=== PATIENT | male | born 2000 | race Caucasian/White ===

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

== ENCOUNTER 2019-05-05 22:16 | Emergency (ER) | payer BC ==
--- NOTE | 2019-05-05 22:34 | Emergency Department Record ---
History of Present Illness - General Stated Complaint: CHEST PAIN Time Seen by Provider: 05/05/19 22:17 Source: Patient Mode of Arrival: Ambulatory Limitations: No limitations - History of Present Illness Initial Comments: 18 yo male presents to ED for evaluation of chest pain symptoms that began approximately 1 hour ago while laying down to go to sleep. Patient reports pain "over my heart", rates pain severity at 1/10. Patient denies previous heart problems other than a "low heart rate", denies previous heart or lung problems otherwise. Patient denies any pain with deep inspiration, calf pain, swelling, fevers, chills, or cough symptoms. Patient denies health problems other than seizures. MD Complaint: Chest pain Onset/Timin -: Hour(s) Onset: During rest Pain Location: Substernal Pain Radiation: None Severity: Mild Severity scale (1-10): 1 Consistency: Constant Improves With: Nothing Worsens With: Nothing Treatments Prior to Arrival: None - Related Data Allergies Allergy/AdvReac Type Severity Reaction Status Date / Time amoxicillin Allergy HIVES Verified 05/05/19 22:37 Review of Systems Constitutional: Denies: Chills, Fever, Malaise, Night sweats Eyes: Denies: Eye discharge, Eye pain ENT: Denies: Congestion, Ear pain, Epistaxis Respiratory: Denies: Cough, Dyspnea Cardiovascular: Reports: Chest pain. Denies: Dyspnea on exertion, Edema, Palpitations Endocrine: Denies: Fatigue, Heat or cold intolerance Gastrointestinal: Denies: Abdominal pain, Nausea, Vomiting Genitourinary: Denies: Incontinence, Retention Musculoskeletal: Denies: Arthralgia, Back pain, Gout, Joint swelling Skin: Denies: Bruising, Change in color Neurological: Denies: Abnormal gait, Confusion, Headache, Tingling, Tremors Psychiatric: Denies: Anxiety Hematological/Lymphatic: Denies: Anemia, Blood Clots Past Medical History - SOCIAL HISTORY Smoking Status: Never smoker - RESPIRATORY Hx Respiratory Disorders: No - CARDIOVASCULAR Hx Cardio Disorders: Yes Comment:: bradycardia - NEURO Hx Neuro Disorders: Yes Hx Seizures: Yes (last one 02/2015) - GI Hx GI Disorders: No - Hx Genitourinary Disorders: No - ENDOCRINE Hx Endocrine Disorders: No - MUSCULOSKELETAL Hx Musculoskeletal Disorders: No - PSYCH Hx Psych Problems: No - HEMATOLOGY/ONCOLOGY Hx Hematology/Oncology Disorders: No Family Medical History Hx Cancer: Grandparents Hx Heart Disease: Grandparents Physical Exam - General General Appearance: Alert, Oriented x3, Cooperative, No acute distress Limitations: No limitations - Head Head exam: Atraumatic, Normocephalic, Normal inspection Head exam detail: negative: Abrasion, Contusion, Carrasquillo's sign, General tenderness, Hematoma, Laceration - Eye Eye exam: Normal appearance. negative: Conjunctival injection, Periorbital swelling, Periorbital tenderness, Scleral icterus - ENT Ear exam: negative: Auricular hematoma, Auricular trauma Nasal Exam: negative: Active bleeding, Discharge, Dried blood, Foreign body Mouth exam: negative: Drooling, Laceration, Muffled voice, Tongue elevation - Neck Neck exam: Normal inspection. negative: Meningismus, Tenderness - Respiratory Respiratory exam: Normal lung sounds bilaterally. negative: Respiratory distress, Rhonchi, Stridor, Wheezes - Cardiovascular Cardiovascular Exam: Regular rate, Normal rhythm, Normal heart sounds - GI/Abdominal GI/Abdominal exam: Soft. negative: Distended, Rebound, Rigid, Tenderness - Rectal Rectal exam: Deferred - exam: Deferred - Extremities Extremities exam: Normal inspection. negative: Pedal edema, Tenderness - Back Back exam: Denies: CVA tenderness (R), CVA tenderness (L) - Neurological Neurological exam: Alert, Normal gait, Oriented X3 - Psychiatric Psychiatric exam: Normal affect, Normal mood - Skin Skin exam: Normal color. negative: Abrasion Type of lesion: negative: abrasion Course Vital Signs 05/05/19 22:23 Temperature 97.7 F Pulse Rate [ 54 L Pulse Ox Probe] Respiratory 20 Rate Blood Pressure 133/82 [Left Arm] Pulse Ox 99 - Reevaluation(s) Reevaluation #1: 05/05/19 22:33 EKG: NSR 60 Normal axis, normal intervals J-point elevation, no evidence for pericarditis/acute cardiac abnormality. Reevaluation #2: 05/05/19 22:55 CXR: No acute process PERC clinical decision rule was applied, and the patient does not have any of the following: -Age > 50 years -Pulse > 100 -Oxygen Saturation < 94% -History of Hemoptysis -Unilateral leg swelling -History or PE/DVT -Recent surgery or Trauma -Oral contraceptive/Hormone use Patient was updated on all results, no evidence for PE as patient is PERC negative EKG demonstrates no acute changes Symptoms are likely musculo-skeletal in etiology. Patient appears stable for discharge at this time with symptomatic care as directed. Disposition Disposition: Discharge Clinical Impression: Atypical chest pain Disposition: Home, Self-Care Condition: (2) Stable Instructions: Chest Pain (ED) Additional Instructions: Return to ED if your symptoms worsen or if you have any concerns. Ibuprofen as directed for pain symptoms. Follow-up with your family doctor in 3-5 days as directed. Forms: Patient Portal Access Time of Disposition: 22:55 Quality - Quality Measures Quality Measures: N/A - Blood Pressure Screening Does Patient Have Any of the Following: No Blood Pressure Classification: Pre-Hypertensive BP Reading Systolic Measurement: 133 Diastolic Measurement: 82 Screening for High Blood Pressure: < Pre-Hypertensive BP, F/U Documented > [G8950] Pre-Hypertensive Follow-up Interventions: Referral to alternative/primary care provider.
--- NOTE | 2019-05-07 05:32 | RADIOLOGY REPORT ---
EXAM: CHEST 2 VIEWS HISTORY: DULL CENTRAL CHEST PAIN. TECHNIQUE: Two views of the chest. COMPARISON: None. FINDINGS: The heart is borderline prominent in size but the mediastinum appears normal. The lungs show no evidence of pneumonia, effusion, edema, or pneumothorax. No suspicious pulmonary nodule. Skeletal structures appear unremarkable. IMPRESSION: NO SIGN OF ANY SPECIFIC OR ACUTE CHEST PATHOLOGY. JOB NUMBER: [id number] [facility]
== END 2019-05-05 22:58 | disposition home or self-care (01) ==
LOC: ER 22:16
DX: R07.89 Other chest pain (principal)
CPT/HCPCS: 71046; 93005; 93010; 99284

== ENCOUNTER 2019-08-24 00:37 | Emergency (ER) | payer BC ==
[2019-08-24] MEDS ORDERED: 0.9 % SODIUM CHLORIDE 1,000 ML BAG IV ONE (00:41)
--- NOTE | 2019-08-24 00:47 | Emergency Department Record ---
History of Present Illness - General Chief Complaint: Seizures Stated Complaint: SEIZURE Time Seen by Provider: 08/24/19 00:41 Source: Patient, Family Mode of Arrival: Wheelchair - History of Present Illness Initial Comments: Mom reports that her son had a grand mal seizure tonight. He has a history of epilepsy since age 3. He ran out of his seizure medication, so he has not had any lamictal medication for the past week. He claims his PCP hasn't sent in his prescription refill. Mom states he has been on 300 mg lamictal daily for over 3 years without dose alterations. She estimates it is his 5th or 6th day with no lamictal since he ran out. The patient denies headache, vision changes, pain anywhere, or other symptoms. Our staff removed him from his vehicle into a wheelchair during which he appeared glassy eyed, and sluggish. By the time he arrived in the E[facility]Dept cart he was answering appropriately and awake, and was able to get onto the cart by himself. Mom reports that his last seizure was about 9 months ago, and the last prior to that was a few years earlier. She also states he did not injure himself when he began seizing tonight. Mom states he has history of a slow heart rate. MD Complaint: Seizure - Related Data Previous Rx's Medication Instructions Recorded Sulfamethoxazole/Trimethoprim 1 each PO BID #19 tablet 08/24/19 [Bactrim Ds Tablet] Allergies Allergy/AdvReac Type Severity Reaction Status Date / Time amoxicillin Allergy HIVES Verified 08/24/19 00:51 Review of Systems Reviewed: No additional complaints except as noted below Constitutional: Reports: As per HPI. Denies: Chills, Fever, Malaise, Night sweats, Weakness, Weight change Eyes: Reports: As per HPI. Denies: Eye discharge, Eye pain, Photophobia, Vision change ENT: Reports: As per HPI. Denies: Congestion, Dental pain, Ear pain, Epistaxis, Hearing loss, Throat pain Respiratory: Reports: As per HPI. Denies: Cough, Dyspnea, Hemoptysis, Stridor, Wheezes Cardiovascular: Reports: As per HPI. Denies: Arrhythmia, Chest pain, Dyspnea on exertion, Edema, Murmurs, Orthopnea, Palpitations, Paroxysmal nocturnal dyspnea, Rheumatic Fever, Syncope Endocrine: Reports: As per HPI. Denies: Fatigue, Heat or cold intolerance, Polydipsia, Polyuria Gastrointestinal: Reports: As per HPI. Denies: Abdominal pain, Constipation, Diarrhea, Hematemesis, Hematochezia, Melena, Nausea, Vomiting Genitourinary: Reports: As per HPI. Denies: Dysuria, Frequency, Hematuria, Incontinence, Retention, Testicular pain, Testicular mass, Urgency Musculoskeletal: Reports: As per HPI. Denies: Arthralgia, Back pain, Gout, Joint swelling, Myalgia, Neck pain Skin: Reports: As per HPI. Denies: Bruising, Change in color, Change in hair/nails, Lesions, Pruritus, Rash Neurological: Reports: As per HPI. Denies: Abnormal gait, Confusion, Headache, Numbness, Paresthesias, Seizure, Tingling, Tremors, Vertigo, Weakness Psychiatric: Reports: As per HPI. Denies: Anxiety, Auditory hallucinations, Depression, Homicidal thoughts, Suicidal thoughts, Visual hallucinations Hematological/Lymphatic: Reports: As per HPI. Denies: Anemia, Blood Clots, Easy bleeding, Easy bruising, Swollen glands Past Medical History - SOCIAL HISTORY Smoking Status: Never smoker - RESPIRATORY Hx Respiratory Disorders: No - CARDIOVASCULAR Hx Cardio Disorders: Yes Comment:: bradycardia - NEURO Hx Neuro Disorders: Yes Hx Seizures: Yes (last one 02/2015) - GI Hx GI Disorders: No - Hx Genitourinary Disorders: No - ENDOCRINE Hx Endocrine Disorders: No - MUSCULOSKELETAL Hx Musculoskeletal Disorders: No - PSYCH Hx Psych Problems: No - HEMATOLOGY/ONCOLOGY Hx Hematology/Oncology Disorders: No Family Medical History Hx Cancer: Grandparents Hx Heart Disease: Grandparents Physical Exam - General General Appearance: Alert, Oriented x3, Cooperative, No acute distress, Other (does not recall events during seizure which mom witnessed) - Head Head exam: Normal inspection - Eye Eye exam: Normal appearance, PERRL, EOMI. negative: Conjunctival injection, Nystagmus Pupils: Normal accommodation - ENT ENT exam: Normal exam, Mucous membranes moist, Normal external ear exam, Normal orophraynx, TM's normal bilaterally Ear exam: Normal external inspection. negative: External canal tenderness Nasal Exam: Normal inspection. negative: Discharge, Sinus tenderness Mouth exam: Normal external inspection, Tongue normal Teeth exam: Normal inspection. negative: Dental caries Throat exam: Normal inspection. negative: Tonsillar erythema, Tonsillar exudate - Neck Neck exam: Normal inspection, Full ROM. negative: Lymphadenopathy, Meningismus, Tenderness - Respiratory Respiratory exam: Normal lung sounds bilaterally. negative: Respiratory distress - Cardiovascular Cardiovascular Exam: Regular rate, Normal rhythm, Normal heart sounds, Bradycardia - GI/Abdominal GI/Abdominal exam: Soft, Normal bowel sounds, Other (spot of urinary inco ntinence noted on blue jeans left of zipper). negative: Tenderness - Rectal Rectal exam: Deferred - exam: Deferred - Extremities Extremities exam: Normal inspection, Full ROM, Normal capillary refill. negative: Tenderness - Back Back exam: Reports: Normal inspection, Full ROM. Denies: Muscle spasm, Rash noted, Tenderness, Vertebral tenderness - Neurological Neurological exam: Alert, CN II-XII intact, Normal gait, Oriented X3, Reflexes normal. negative: Altered, Motor sensory deficit - Psychiatric Psychiatric exam: Normal affect, Normal mood - Skin Skin exam: Dry, Intact, Normal color, Warm. negative: Cyanosis, Diaphoretic, Erythema, Rash, Urticaria Course - Reevaluation(s) Reevaluation #1: Discussed with assistant professor nurse education pharmacist Jojo who recommends 150 mg now and 150 mg in 12 hours, then resume usual dose of 300 mg daily. 08/24/19 01:03 08/24/19 01:11 The patient was noted to have a spot of urinary incontinence on his jeans upon arrival left of his zipper. Medical Decision Making - Management Options MDM Management: No Additional Work-up Planned - Data Complexity MDM Data: Labs Ordered and/or Reviewed (UA:2+ bacteria, 10-15WBC, mod LE.), EKG Ordered and/or Reviewed (EKG Sinus bradycardia with ST elevation probably early repol pattern, no change from prior of 05-05-19.) - Lab Data Result diagrams: 08/24/19 00:40 08/24/19 00:40 Disposition Disposition: Discharge Clinical Impression: Seizure Epilepsy Qualifiers: Epilepsy type: unspecified Intractability: not intractable Status epilepticus: without status epilepticus Qualified Code(s): G40.909 - Epilepsy, unspecified, not intractable, without status epilepticus UTI (urinary tract infection) Qualifiers: Urinary tract infection type: acute cystitis Hematuria presence: without hematuria Qualified Code(s): N30.00 - Acute cystitis without hematuria Disposition: Home, Self-Care Condition: (1) Good Instructions: Recurrent Seizures in Adults (ED) Additional Instructions: Do not drive. Take 150 mg lamictal in 12 hours from your first 150 mg dosage. Resume 300 mg lamictal as before beginning tomorrow. Script given lamictal 300 mg daily #15 tabs. Take Bactrim DS twice daily for 10 days. Recheck your urine with you PCP after antibiotics finished to be sure the infection cleared. Prescriptions: Sulfamethoxazole/Trimethoprim [Bactrim Ds Tablet] 1 each PO BID #19 tablet Forms: Patient Portal Access Quality - Quality Measures Quality Measures: N/A - Blood Pressure Screening Does Patient Have Any of the Following: No Blood Pressure Classification: Pre-Hypertensive BP Reading Systolic Measurement: 131 Diastolic Measurement: 77 Screening for High Blood Pressure: < Pre-Hypertensive BP, F/U Documented > [G8950] Pre-Hypertensive Follow-up Interventions: Follow-up with rescreen every year., Lifestyle modifications., Referral to alternative/primary care provider. Lifestyle Modification: Dietary Approaches to Stop Hypertension (DASH) Eating Plan, Dietary Sodium Restriction, Increased Physical Activity, Moderation in a lcohol (ETOH) consumption
[2019-08-24 00:51] LABS: ABSOLUTE NEUTROPHIL COUNT 4.66; BASO % 0.4 % (0-6); EOS % 2.3 % (0-6); GRAN % 66.7 % (47-80); HEMOGLOBIN 15.4 gm/dl (14.0-18.0); LYMPH % 19.2 % (16-45); MEAN CELL VOLUME 89.8 fl (81-97); MEAN CORPUSCULAR HEMOGLOBIN 30.7 pg (27-33); MEAN CORPUSCULAR HGB CONC 34.2 g/dl (32-36); MEAN PLATELET VOLUME 10.6 fl (7.4-10.4); MONO % 11.4 % (0-9); PLATELET COUNT 208 K/uL (130-400); RED BLOOD COUNT 5.01 M/uL (4.40-5.70); RED CELL DISTRIBUTION WIDTH 12.7 % (11.5-14.5)
[2019-08-24 01:04] LABS: BLOOD UREA NITROGEN 10 mg/dL (6-20); CREATININE 0.8 mg/dL (0.7-1.2); EST GLOMERULAR FILTRATION RATE > 60 mL/min
[2019-08-24 01:05] LABS: TOTAL PROTEIN 7.8 g/dL (6.6-8.7)
[2019-08-24 01:07] LABS: GLUCOSE,RANDOM 95 mg/dL (74-109)
[2019-08-24 01:09] LABS: ACETAMINOPHEN < 5.0 ug/mL (10.0-30.0); ALB/GLOB RATIO 1.8 (1.1-1.8); ALKALINE PHOSPHATASE 96 U/L (40-129); ALT/SGPT 19 U/L (<41); AST/SGOT 18 U/L (10.0-50.0)
[2019-08-24 01:10] LABS: SALICYLATE < 0.3 mg/dL (2.8-20)
[2019-08-24] MEDS ORDERED: LAMOTRIGINE 100 MG TABLET PO SCH ×2 (01:15→01:30)
[2019-08-24 01:41] LABS: URINE APPEARANCE SL CLOUDY; URINE BILIRUBIN NEGATIVE (NEGATIVE); URINE BLOOD TRACE-I (NEGATIVE); URINE COLOR YELLOW; URINE GLUCOSE (UA) NEGATIVE (NEGATIVE); URINE KETONE NEGATIVE (NEGATIVE); URINE LEUKOCYTE ESTERASE MODERATE (NEGATIVE); URINE NITRITE NEGATIVE (NEGATIVE); URINE PROTEIN NEGATIVE (NEGATIVE); URINE UROBILINOGEN 0.2 E.U./dL (0.20 - 1.00)
[2019-08-24 01:44] LABS: AMPHETAMINE SCREEN URINE NOT DETECTED; BARBITURATE SCREEN URINE NOT DETECTED; BENZODIAZEPINE SCREEN URINE NOT DETECTED; COCAINE SCREEN URINE NOT DETECTED; METHADONE SCREEN URINE NOT DETECTED; METHAMPHETAMINE SCREEN NOT DETECTED; OPIATE SCREEN URINE NOT DETECTED; OXYCODONE SCREEN URINE NOT DETECTED; PHENCYCLIDINE SCREEN URINE NOT DETECTED; PROPOXYPHENE SCREEN URINE NOT DETECTED; THC SCREEN URINE DETECTED; TRICYCLIC ANTIDEPRESSANT SCRN NOT DETECTED
[2019-08-24 01:48] LABS: URINE BACTERIA 2+; URINE EPITHELIAL CELLS 0 - 2 (FEW); URINE RBC 0 - 2 (NONE SEEN)
[2019-08-24] MEDS ORDERED: TMP/SMZ 160MG/800MG TAB PO ONE (01:55)
== END 2019-08-24 02:09 | disposition home or self-care (01) ==
LOC: ER 00:37
DX: G40.909 Epilepsy, unspecified, not intractable, without status epilepticus (principal); N30.00 Acute cystitis without hematuria
CPT/HCPCS: 80053; 80305; 80320; 80329; 81001; 85025; 93005; 93010; 99284; J7030